=== PATIENT | male | born 1960 | race African-American/Black ===

== ENCOUNTER 2017-03-05 15:40 | Emergency (ER) | payer OTHER ==
[~2017-03-05] VITALS: Ht 175.3 cm; Wt 77.0 kg
[~2017-03-05 15:40] MED LIST: KCL10C PO; MECL25CH PO; ZOFR4TAB3 SL
[2017-03-05 15:45] VITALS: BP 177/100; PULSE 68; RESP 16; TEMP 98.4; O2SAT 100
--- NOTE | 2017-03-05 15:54 | PD ---
HPI Chief Complaint: Hypertension Time Seen by Provider: 15:54 Travel History International Travel<30 days: No Contact w/Intl Traveler<30days: No Traveled to known affect area: No History of Present Illness HPI 56-year-old male came to the emergency room with history of hypertension. Patient says that he did not take his blood pressure medication for past 1 month because it never got refilled. He does have a primary care. Today he was at the primary care's office to get some blood tests done when his blood pressure was checked and noticed to be high. He was asked to come to the emergency room. Patient denies of any headache, blurred vision or chest pain. He says that about a week ago he felt lightheaded that lasted for brief period and the same thing happened this morning again. He never had any syncopal episode. Here in triage his blood pressure was 170 systolic. [facility] Past Medical History Narrative Medical List of his past medical, surgical, social and family history is reviewed from the nursing note. Diminished Hearing: No Hypertension: Yes Social History Alcohol Use: Yes (BEER ON THE WEEKEND) Tobacco Use: No Substance Use: No Allergies-Medications (Allergen,Severity, Reaction): Coded Allergies: Aspirin (Verified Allergy, Unknown, Nausea/Vomiting, 09/01/14) Comments List of his allergies reviewed from the nursing note. Reported Meds & Prescriptions Reported Meds & Active Scripts Active Hydrochlorothiazide 25 Mg Tab 25 Mg PO DAILY Norvasc (Amlodipine Besylate) 5 Mg Tab 5 Mg PO DAILY Reported Metformin (Metformin HCl) 500 Mg Tab 500 Mg PO DAILY With a meal Narrative Medication List of his home medications reviewed from the nursing note. Review of Systems Except as stated in HPI: all other systems reviewed are Neg Physical Exam Narrative GENERAL: Awake, alert, no obvious distress SKIN: Focused skin assessment warm/dry. HEAD: Atraumatic. Normocephalic. EYES: Pupils equal and round. No scleral icterus. No injection or drainage. ENT: No nasal bleeding or discharge. Mucous membranes pink and moist. NECK: Trachea midline. No JVD. CARDIOVASCULAR: Regular rate and rhythm. No murmur appreciated. RESPIRATORY: No accessory muscle use. Clear to auscultation. Breath sounds equal bilaterally. GASTROINTESTINAL: Abdomen soft, non-tender, nondistended. Hepatic and splenic margins not palpable. MUSCULOSKELETAL: No obvious deformities. No clubbing. No cyanosis. No edema. NEUROLOGICAL: Awake and alert. No obvious cranial nerve deficits. Motor grossly within normal limits. Normal speech. PSYCHIATRIC: Appropriate mood and affect; insight and judgment normal. Data Data Last Documented VS Orders Amlodipine (Norvasc) (03/05/17 16:15) Hydrochlorothiazide (Hydrodiuril) (03/05/17 16:15) Clonidine (Catapres) (03/05/17 17:45) MDM Medical Decision Making Medical Screen Exam Complete: Yes Emergency Medical Condition: Yes Medical Record Reviewed: Yes Differential Diagnosis Essential hypertension, noncompliant Narrative Course 5:52 PM patient was given his usual dose of Norvasc and hydrochlorothiazide. However his blood pressure continued to be elevated. I have just ordered by mouth clonidine as well. I have all the intention of discharging this patient home since this is essential hypertension since because of patient's noncompliance. He'll get a prescription of his usual blood pressure medication and need to be followed up by his primary care. Procedures EKG Prior to Arrival: No Diagnosis Primary Impression: Essential hypertension Additional Impression: Noncompliance Referrals: Primary Care Physician 2 days Additional Instructions: Please return to the ER the condition worsens or any other new concerns. Otherwise follow-up with your primary care in couple days. Please get the prescription filled and continue with your medications as per the direction. He should not stop taking your blood pressure medication for diabetes medications without talking to Doctor. Med/Other Pt SpecificInfo: Prescription(s) given Scripts Hydrochlorothiazide 25 Mg Tab25 Mg PO DAILY #30 TAB Ref 0 Prov:Charlie Meehan MD 03/05/17 Amlodipine (Norvasc)5 Mg Tab5 Mg PO DAILY #30 TAB Ref 0 Prov:Charlie Meehan MD 03/05/17 Disposition: 01 DISCHARGE HOME Condition: Stable Charlie Meehan MD March 05, 2017 15:54 Med/Other Pt SpecificInfo: Prescription(s) given Scripts Hydrochlorothiazide 25 Mg Tab25 Mg PO DAILY #30 TAB Ref 0 Prov:Charlie Meehan MD 03/05/17 Amlodipine (Norvasc)5 Mg Tab5 Mg PO DAILY #30 TAB Ref 0 Prov:Charlie Meehan MD 03/05/17 Disposition: 01 DISCHARGE HOME Condition: Stable Charlie Meehan MD March 05, 2017 15:54
[2017-03-05 15:56] VITALS: BP 177/110; PULSE 68; RESP 16; TEMP 98.4; O2SAT 100
[2017-03-05] MEDS ORDERED: AMLO5 PO ×2 (15:56→17:54)
[2017-03-05] MEDS ORDERED: HYDR25TA5 PO ×2 (15:56→17:54)
[2017-03-05] MEDS ORDERED: HYDROCHLOROTHIAZIDE 25 MG TAB PO ONE (16:15)
[2017-03-05] MEDS ORDERED: amLODIPine BESYLATE 5 MG TAB PO ONE (16:15)
[2017-03-05] MEDS ORDERED: METF500T PO (16:19)
[2017-03-05 16:26] VITALS: BP 188/111
[2017-03-05 16:54] VITALS: BP 172/108; PULSE 60; O2SAT 100
[2017-03-05 17:32] VITALS: BP 174/111; PULSE 64; O2SAT 100
[2017-03-05] MEDS ORDERED: cloNIDine HCL 0.1 MG TAB PO ONE (17:45)
[2017-03-05 18:08] VITALS: BP 177/102
== END 2017-03-05 18:16 | disposition home or self-care (01) ==
LOC: PHED 15:40
DX: I10 Essential (primary) hypertension (principal); Z91.19 Patient's noncompliance with other medical treatment and regimen
CPT/HCPCS: 99283